=== PATIENT | male | born 1955 | race Native Hawaiian/Other Pacific Islander ===

== ENCOUNTER 2016-07-29 09:35 | Day surgery (SDC) | payer OTHER ==
[~2016-07-29 09:35] MED LIST: FENTANYL 250 MCG/5 ML AMP IV PRN; LACTATED RINGERS 1,000 ML IV SCH; MIDAZOLAM HCL 5 MG/5 ML VIAL IV PRN
[2016-07-29] MEDS ORDERED: IV START KIT ONE (09:42)
[2016-07-29] MEDS ORDERED: LACTATED RINGERS 1,000 ML ONE (09:42)
[2016-07-29] MEDS ORDERED: MIDAZOLAM HCL 5 MG/5 ML VIAL ONE (10:16)
[2016-07-29] MEDS ORDERED: FENTANYL 5 ML ONE (10:17)
--- NOTE | 2016-08-02 13:23 | SURGPATH ---
[facility] [address] [place] [id number] Patient Name: JOCE COOPER MR#: [id number] : 1955 Gender: M Specimen #: [id number] Collected: 07/29/2016 Received: 08/01/2016 Reported: 08/02/2016 Submitting Phys: FIDEL CORRALES Copy To Phys: [facility] JOANNE MCKEON Clinical History / Pre-Operative Diagnosis: SCREENING; HISTORY OF POLYPS Specimen Source / Surgical Procedure Performed: SIGMOID POLYP AT 25 CM Interpretation: SIGMOID COLON, POLYP AT 25 CM, BIOPSY - TUBULAR ADENOMA Electronically Signed Out Gustabo Paagn M.D. Gross Description: The specimen is received in a formalin filled container labeled with the patient's name and "sigmoid polyp at 25 cm". A single boateng biopsy is 0.3 cm. Totally embedded in one cassette. Kyle Webb PGissel Microscopic Description: Levels reveal colonic mucosa surfaced by tubular glands with focal adenomatous features. High grade dysplasia and malignancy are not present. 1: 12084 D12.5
== END 2016-07-29 11:34 | disposition home or self-care (01) ==
LOC: SDC 09:35
PROVIDERS: ATTEND Internal Medicine Gastroenterology
PROC: 0DBN8ZX Excision of Sigmoid Colon, Via Natural or Artificial Opening Endoscopic, Diagnostic (ICD-10-PCS; principal; 2016-07-29)
DX: Z12.11 Encounter for screening for malignant neoplasm of colon (principal); D12.5 Benign neoplasm of sigmoid colon; Z86.010 Personal history of colon polyps; Z83.71 Family history of colonic polyps; Z87.891 Personal history of nicotine dependence; E78.5 Hyperlipidemia, unspecified
CPT/HCPCS: 45385; J3010; J2250; J7120